=== PATIENT | female | born 1970 | race Caucasian/White ===

== ENCOUNTER 2018-04-08 16:57 | Outpatient (REF) | payer OTHER, SELFPAY ==
[2018-04-08 22:05] LABS: Anion Gap 7.2 mmol/L (3-11); BUN 15 mg/dL (7-18); CO2 29.8 mmol/L (21.0-32.0); CREATININE 0.99 mg/dL (0.55-1.02); Calcium 9.1 mg/dL (8.5-10.1); Chloride 102 mmol/L (98-107); Estimated GFR 59.62 (mL/min/1.73m2); Glucose 87 mg/dL (70-100); Sodium 139 mmol/L (136-145)
== END 2018-04-08 17:17 ==
LOC: NCHCN 16:57
PROVIDERS: PCP Registered Nurse; Visit Provider Registered Nurse
DX: E03.9 Hypothyroidism, unspecified (principal); Z00.00 Encounter for general adult medical examination without abnormal findings
CPT/HCPCS: 80048

== ENCOUNTER 2019-06-14 20:12 | Outpatient (REF) | payer BC, SELFPAY | END 2019-06-14 20:32 | LOC: NCHCN 20:12 | PROVIDERS: PCP Registered Nurse; Visit Provider Nurse Practitioner Community Health | DX: L98.8 Other specified disorders of the skin and subcutaneous tissue (principal) | CPT/HCPCS: 87081 ==

== ENCOUNTER 2019-06-18 13:47 | Outpatient (REF) | payer BC, SELFPAY ==
[2019-06-18 21:20] LABS: Abs Immature Grans 0.07 k/cumm (0.0-0.09); Absolute Basophil Count 0.05 k/cumm (0.0-0.2); Absolute Eosinophil Count 0.32 k/cumm (0.0-0.7); Absolute Lymphocyte Count 3.82 k/cumm (1.2-3.4); Absolute Monocyte Count 1.28 k/cumm (0.11-0.7); Basophils % 0.3; Eosinophils % 1.8; HCT 44.2 % (36.0-46.0); HGB 14.4 g/dL (12.0-15.5); Immature Grans % 0.4 %; Lymphocytes % 21.4; Mean Corp. HGB Concentration 32.6 g/dL (32.0-36.0); Mean Corpuscular Hemoglobin 28.7 pg (27.0-33.0); Mean Platelet Volume 10.4 fL (8.0-11.0); Monocytes % 7.2; Neutrophils % 68.9; Platelet Count 343 x1000/uL (130-400); RBC 5.02 m/cumm (4.00-5.20); RBC Distribution Width 14.3 % (11.7-14.6)
[2019-06-18 21:33] LABS: Absolute Neutrophil Count 12.29 k/cumm (1.2-6.7)
[2019-06-18 21:34] LABS: White Blood Cell Count 17.84 k/cumm (4.4-10.8)
[2019-06-18 21:35] LABS: Diff Comment Diff Reviewed
[2019-06-18 21:54] LABS: TSH 3.81 uIU/mL (0.36-3.74)
[2019-06-22 02:53] LABS: HSV 1 PCR, Varies Negative (Negative); HSV 2 PCR, Varies Negative (Negative)
== END 2019-06-18 14:07 ==
LOC: NCHCN 13:47
PROVIDERS: PCP Registered Nurse; Visit Provider Nurse Practitioner Family
DX: L98.9 Disorder of the skin and subcutaneous tissue, unspecified (principal); E03.9 Hypothyroidism, unspecified; Z11.59 Encounter for screening for other viral diseases
CPT/HCPCS: 87077; 87529; 84443; 85025; 87070; 87186; 87205; 87798

== ENCOUNTER 2019-08-17 18:55 | Outpatient (REF) | payer BC, SELFPAY ==
[2019-08-17 21:11] LABS: Abs Immature Grans 0.04 k/cumm (0.0-0.09); Absolute Basophil Count 0.03 k/cumm (0.0-0.2); Absolute Eosinophil Count 0.21 k/cumm (0.0-0.7); Absolute Lymphocyte Count 3.61 k/cumm (1.2-3.4); Absolute Monocyte Count 0.82 k/cumm (0.11-0.7); Absolute Neutrophil Count 6.03 k/cumm (1.2-6.7); Basophils % 0.3; HCT 46.2 % (36.0-46.0); HGB 14.8 g/dL (12.0-15.5); Immature Grans % 0.4 %; Lymphocytes % 33.6; Mean Corpuscular Hemoglobin 28.1 pg (27.0-33.0); Mean Corpuscular Volume 87.8 fL (80-95); Mean Platelet Volume 11.2 fL (8.0-11.0); Monocytes % 7.6; Neutrophils % 56.1; Platelet Count 279 x1000/uL (130-400); RBC 5.26 m/cumm (4.00-5.20); RBC Distribution Width 15.4 % (11.7-14.6); White Blood Cell Count 10.74 k/cumm (4.4-10.8)
[2019-08-17 21:44] LABS: TSH 0.42 uIU/mL (0.36-3.74)
== END 2019-08-17 19:15 ==
LOC: NCHCN 18:55
PROVIDERS: PCP Registered Nurse; Visit Provider Registered Nurse
DX: E03.9 Hypothyroidism, unspecified (principal); D72.829 Elevated white blood cell count, unspecified
CPT/HCPCS: 84443; 85025

== ENCOUNTER 2021-09-05 09:11 | Outpatient (REF) | payer SELFPAY ==
--- NOTE | 2021-09-05 08:00 | PAPFT_PTH ---
PATIENT: Carol Ann Oquendo LOC: [facility] U#:[id number] AGE/SX: 51/F ROOM: RE09/05/[address]: Geneva Vargas : 1970 BED: DIS: 09/05/2021 SPEC #: [id number] RECD: 09/05/21 18:17 STATUS: ERIK REQ #: [id number] ZOEY: 09/05/21 08:[address]: Geneva Vargas DEPT: [facility] Cytology RECD BY: Hailey Bowers Tissues: 1 - CX/ENDOCX FOR PAP SMEARS Procedures: PAP THIN PREP/[facility] Screening HPV DNA PROBE Comments: [id number]
== END 2021-09-05 09:12 | disposition home or self-care (01) ==
LOC: NCHCN 09:11
PROVIDERS: PCP Registered Nurse; Visit Provider Registered Nurse
DX: Z00.00 Encounter for general adult medical examination without abnormal findings (principal); Z12.4 Encounter for screening for malignant neoplasm of cervix
CPT/HCPCS: 88142; 87624

== ENCOUNTER 2021-10-31 09:05 | Outpatient (REF) | payer BC, SELFPAY ==
--- NOTE | 2021-10-31 07:45 | SKI_PTH ---
PATIENT: Carol Ann Oquendo LOC: [facility] U#:[id number] AGE/SX: 51/F ROOM: RE10/31/[address]: Geneva Vargas : 1970 BED: DIS: 10/31/2021 SPEC #: [id number] RECD: 10/31/21 15:54 STATUS: ERIK REQ #: [id number] ZOEY: 10/31/21 07:[address]: Geneva Vargas DEPT: Surgical Specimen RECD BY: Hailey Bowers Tissues: 1 - SKIN CYST/TAG/DEBRIDEMENT Procedures: GROSS AND MICRO LEVEL 3 Comments: [id number]
== END 2021-10-31 09:06 | disposition home or self-care (01) ==
LOC: NCHCN 09:05
PROVIDERS: PCP Registered Nurse; Visit Provider Registered Nurse
DX: L98.8 Other specified disorders of the skin and subcutaneous tissue (principal)
CPT/HCPCS: 88304

== ENCOUNTER 2022-12-12 09:41 | Outpatient (REF) | payer OTHER, SELFPAY ==
[2022-12-12 14:41] LABS: Anion Gap 7.5 mmol/L (3-11); BUN 17 mg/dL (7-18); CO2 28.5 mmol/L (21.0-32.0); Calcium 9.6 mg/dL (8.5-10.1); Chloride 100 mmol/L (98-107); Estimated GFR 67.36 (mL/min/1.73m2); Glucose 92 mg/dL (74-106); Potassium 3.7 mmol/L (3.5-5.1); Sodium 136 mmol/L (136-145); TSH (W/Ref FT4) 0.42 uIU/mL (0.36-3.74)
== END 2022-12-12 09:42 | disposition home or self-care (01) ==
LOC: NCHCN 09:41
PROVIDERS: PCP Registered Nurse; Visit Provider Family Medicine
DX: I10 Essential (primary) hypertension (principal); E03.9 Hypothyroidism, unspecified
CPT/HCPCS: 80048; 84443

== ENCOUNTER 2023-06-17 19:38 | Outpatient (REF) | payer OTHER, SELFPAY ==
[2023-06-17 21:03] LABS: Hemoglobin A1C 5.7 % (<5.7)
[2023-06-17 21:14] LABS: Calculated LDL 120 mg/dL (<100); Cholesterol 201 mg/dL (<200); HDL Cholesterol 52 mg/dL (40-60); Triglyceride 145 mg/dL (<150)
== END 2023-06-17 19:39 | disposition home or self-care (01) ==
LOC: NCHCN 19:38
PROVIDERS: PCP Registered Nurse; Visit Provider Family Medicine
DX: I70.219 Atherosclerosis of native arteries of extremities with intermittent claudication, unspecified extremity (principal)
CPT/HCPCS: 80061; 83036

== ENCOUNTER 2023-07-30 19:26 | Outpatient (REF) | payer OTHER, SELFPAY ==
[2023-07-30 21:24] LABS: ALT 27 U/L (14-59); AST 20 U/L (15-37); Albumin 3.6 g/dL (3.4-5.0); Alkaline Phosphatase 123 U/L (46-116); Anion Gap 7.1 mmol/L (3-11); BUN 18 mg/dL (7-18); Bilirubin, Total 0.38 mg/dL (0.2-1.0); CO2 30.9 mmol/L (21.0-32.0); CREATININE 1.2 mg/dL (0.55-1.02); Calcium 9.4 mg/dL (8.5-10.1); Chloride 99 mmol/L (98-107); Estimated GFR 53.79 (mL/min/1.73m2); Glucose 136 mg/dL (74-106); Potassium 3.3 mmol/L (3.5-5.1); Sodium 137 mmol/L (136-145)
== END 2023-07-30 19:27 | disposition home or self-care (01) ==
LOC: NCHCN 19:26
PROVIDERS: PCP Registered Nurse; Visit Provider Family Medicine
DX: R60.0 Localized edema (principal)
CPT/HCPCS: 80053